=== PATIENT | female | born 1970 | race Caucasian/White ===

== ENCOUNTER 2018-01-09 04:28 | Emergency (ER) | payer SELFPAY | END 2018-01-09 05:20 | disposition home or self-care (01) | LOC: ER 04:28 | DX: R05 Cough (principal); R09.81 Nasal congestion; F31.9 Bipolar disorder, unspecified; J45.909 Unspecified asthma, uncomplicated; F17.210 Nicotine dependence, cigarettes, uncomplicated; Z88.0 Allergy status to penicillin | CPT/HCPCS: 99283 ==